=== PATIENT | female | born 2000 | race Caucasian/White ===

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

== ENCOUNTER → 2020-08-06 | Outpatient (REF) | payer OTHER ==
[2020-08-06 14:29] LABS: FREE T4 0.9 NG/DL (0.78-1.33); THYROID STIMULATING HORMONE 1.72 uIU/ML (0.463-3.98)
== END ==
LOC: M PLALAB 09:26
PROVIDERS: ATTEND Advanced Practice Midwife
DX: F53.0 Postpartum depression (principal)

== ENCOUNTER → 2021-01-24 | Outpatient (CLI) | payer BC, OTHER ==
[2021-01-24 18:53] LABS: HEMATOCRIT 42.2 % (36.0-47.0); HEMOGLOBIN 13.8 g/dl (12.0-15.5); MEAN CORPUSCULAR HEMOGLOBIN 28.9 pg (27.0-33.0); MEAN CORPUSCULAR HGB CONC 32.7 g/dl (32.0-36.5); MEAN CORPUSCULAR VOLUME 88.3 fl (80.0-96.0); PLATELET COUNT, AUTOMATED 322 10^3/uL (150-450); RED BLOOD COUNT 4.78 10^6/uL (4.00-5.40); WHITE BLOOD COUNT 11.7 10^3/uL (4.0-10.0)
[2021-01-24 20:11] LABS: HEPATITIS C VIRUS ABY INDEX < 0.0 INDEX (<0.8); HIV 1&2 SCREEN CENTAUR NEGATIVE (NEGATIVE)
[2021-01-25 09:40] LABS: GC DNA AMPLIFICATION NEGATIVE (NEGATIVE)
== END ==
LOC: M PLALAB 14:52
PROVIDERS: ATTEND Advanced Practice Midwife
DX: Z34.91 Encounter for supervision of normal pregnancy, unspecified, first trimester (principal)

== ENCOUNTER → 2021-04-12 | Outpatient (CLI) | payer BC, OTHER | LOC: M WHC 13:15 | PROVIDERS: ATTEND Obstetrics & Gynecology | DX: Z36.9 Encounter for antenatal screening, unspecified (principal); Z3A.20 20 weeks gestation of pregnancy ==

== ENCOUNTER → 2021-04-28 | Outpatient (CLI) | payer BC, OTHER | LOC: M WHC 11:34 | PROVIDERS: ATTEND Obstetrics & Gynecology | DX: Z36.2 Encounter for other antenatal screening follow-up (principal) ==

== ENCOUNTER → 2021-06-15 | Outpatient (CLI) | payer BC, OTHER ==
[2021-06-15 15:28] LABS: HEMATOCRIT 35.7 % (36.0-47.0); HEMOGLOBIN 11.8 g/dl (12.0-15.5); MEAN CORPUSCULAR HEMOGLOBIN 29.4 pg (27.0-33.0); MEAN CORPUSCULAR HGB CONC 33.1 g/dl (32.0-36.5); MEAN CORPUSCULAR VOLUME 88.8 fl (80.0-96.0); PLATELET COUNT, AUTOMATED 234 10^3/uL (150-450); RED BLOOD COUNT 4.02 10^6/uL (4.00-5.40); WHITE BLOOD COUNT 13.5 10^3/uL (4.0-10.0)
== END ==
LOC: M PLALAB 11:38
PROVIDERS: ATTEND Advanced Practice Midwife
DX: Z34.02 Encounter for supervision of normal first pregnancy, second trimester (principal)

== ENCOUNTER → 2021-07-01 | Outpatient (CLI) | payer BC, OTHER | LOC: M LAB 08:21 | PROVIDERS: ATTEND Specialist | DX: O99.810 Abnormal glucose complicating pregnancy (principal); Z3A.00 Weeks of gestation of pregnancy not specified ==

== ENCOUNTER → 2021-08-03 | Outpatient (CLI) | payer BC, OTHER ==
[2021-08-03 15:55] LABS: ALBUMIN 2.5 GM/DL (3.2-5.2); BILIRUBIN,DIRECT 0.1 MG/DL (0.0-0.2); BILIRUBIN,TOTAL 0.4 MG/DL (0.2-1.0); TOTAL PROTEIN 6.2 GM/DL (6.4-8.2)
== END ==
LOC: M PLALAB 13:54
PROVIDERS: ATTEND Obstetrics & Gynecology
DX: Z34.83 Encounter for supervision of other normal pregnancy, third trimester (principal)

== ENCOUNTER → 2021-08-03 | Outpatient (REF) | payer BC, OTHER | LOC: M SFHCWAGY 17:09 | PROVIDERS: ATTEND Obstetrics & Gynecology | DX: Z34.83 Encounter for supervision of other normal pregnancy, third trimester (principal); Z3A.00 Weeks of gestation of pregnancy not specified ==

== ENCOUNTER 2021-08-20 15:33 | Inpatient (IN) | payer BC, OTHER ==
[2021-08-20] VITALS (15 sets, daily range): BP systolic 124–186; BP diastolic 71–96
[~2021-08-20] VITALS: Ht 162.6 cm; Wt 103.2 kg
[2021-08-20] MEDS ORDERED: OXYTOCIN INJ 10 UNITS/ML VIAL (J2590) As Ordered ONE (15:49)
[2021-08-20] MEDS ORDERED: OXYTOCIN 30 UNITS IN 0.9% NaCl 500ML IV BAG (J2590) As Ordered ONE (15:49)
[2021-08-20] MEDS ORDERED: DOCUSATE SODIUM 100MG CAPSULE PO PRN (16:15)
[2021-08-20] MEDS ORDERED: RHOGAM 300 MCG (1500 IU) INJ (J2790) IM SCH (16:15)
[2021-08-20] MEDS ORDERED: METHYLERGONOVINE MALEATE 0.2 MG TAB PO PRN (16:15)
[2021-08-20] MEDS ORDERED: ACETAMINOPHEN TAB 650MG DOSE (2X325MG) PO PRN (16:15)
[2021-08-20] MEDS ORDERED: IBUPROFEN 600MG TAB PO PRN (16:15)
[2021-08-20] MEDS ORDERED: ANUSOL HC CREAM 30GM TOP PRN (16:15)
[2021-08-20] MEDS ORDERED: DIBUCAINE 1% OINTMENT 30GM TOP PRN (16:15)
[2021-08-20] MEDS ORDERED: MEASLES,MUMPS,RUBELLA VACCINE INJ (MMR-II) (90707) SC SCH (16:15)
[2021-08-20] MEDS ORDERED: OXYTOCIN INJ 10 UNITS/ML VIAL (J2590) IV ONE (16:15)
[2021-08-20] MEDS ORDERED: MOM 30ML SUSPENSION UDC PO PRN (16:15)
[2021-08-20] MEDS ORDERED: OXYTOCIN DRIP 30 UNITS in IV 1 EA IV SCH ×4 (16:15)
[2021-08-20 16:17] LABS: CORD GAS ABE A -0.4; CORD GAS HCO3 A 25.6 MEQ/L; CORD GAS O2 SAT A 44.2 %; CORD GAS PCO2 A 46.2 mmHg; CORD GAS PH A 7.361 UNITS; CORD GAS PO2 A 20.5 mmHg; CORD GAS SBC A 22.7 MEQ/L
[2021-08-20 16:18] LABS: CORD GAS ABE V -0.5; CORD GAS HCO3 V 22.9 MEQ/L; CORD GAS PCO2 V 34.8 mmHg; CORD GAS PH V 7.437 UNITS; CORD GAS PO2 V 32.1 mmHg; CORD GAS SBC V 23.5 MEQ/L
[2021-08-20] MEDS ORDERED: ZOLO50TA PO (16:28)
[2021-08-20 16:30] LABS: HEMOGLOBIN 11.8 g/dl (12.0-15.5); MEAN CORPUSCULAR HEMOGLOBIN 28.7 pg (27.0-33.0); MEAN CORPUSCULAR HGB CONC 32.8 g/dl (32.0-36.5); MEAN CORPUSCULAR VOLUME 87.6 fl (80.0-96.0); PLATELET COUNT, AUTOMATED 232 10^3/uL (150-450); RED BLOOD COUNT 4.11 10^6/uL (4.00-5.40); WHITE BLOOD COUNT 15.3 10^3/uL (4.0-10.0)
[2021-08-20] MEDS: LR 1,000 ML IV SCH (16:45)
[2021-08-20] MEDS ORDERED: HOME MED LIST COMPLETE! XX SCH (17:30)
[2021-08-20] MEDS ORDERED: LABETALOL 200 MG TAB PO ONE (18:15)
[2021-08-20 18:20] LABS: ALT/SGPT 23 U/L (12-78); BILIRUBIN,TOTAL 0.4 MG/DL (0.2-1.0); CREATININE FOR GFR 0.58 MG/DL (0.55-1.30); LDH LACTATE DEHYDROGENASE 173 U/L (84-246); URIC ACID 4.4 MG/DL (2.6-6.0)
[2021-08-20] MEDS ORDERED: LABETALOL 100MG/20ML VIAL IV STA (18:40)
[2021-08-20] MEDS: SERTRALINE HCL 50 MG TAB PO SCH (21:14)
[2021-08-21] MEDS: LR 1,000 ML IV SCH ×2 (00:15→08:15)
[2021-08-21] MEDS: ACETAMINOPHEN 500 MG TAB PO PRN (00:36)
[2021-08-21 01:58] VITALS: BP 137/71
[2021-08-21 05:53] VITALS: BP 141/82
[2021-08-21 08:23] LABS: HEMATOCRIT 34.9 % (36.0-47.0); HEMOGLOBIN 11.1 g/dl (12.0-15.5); MEAN CORPUSCULAR HEMOGLOBIN 28.1 pg (27.0-33.0); MEAN CORPUSCULAR HGB CONC 31.8 g/dl (32.0-36.5); MEAN CORPUSCULAR VOLUME 88.4 fl (80.0-96.0); PLATELET COUNT, AUTOMATED 226 10^3/uL (150-450); RED BLOOD COUNT 3.95 10^6/uL (4.00-5.40); WHITE BLOOD COUNT 16.1 10^3/uL (4.0-10.0)
[2021-08-21] MEDS: PRENATAL VITAMINS CHEWABLE TABLET PO SCH (09:11)
[2021-08-21] MEDS: LABETALOL 200 MG TAB PO SCH ×2 (09:12→20:41)
[2021-08-21 10:00] VITALS: BP 135/72
[2021-08-21 14:00] VITALS: BP 137/64
[2021-08-21 17:48] VITALS: BP 143/77
[2021-08-21] MEDS: SERTRALINE HCL 50 MG TAB PO SCH (20:41)
[2021-08-21 22:00] VITALS: BP 145/89
[2021-08-22 02:40] VITALS: BP 151/83
[2021-08-22] MEDS: ACETAMINOPHEN 500 MG TAB PO PRN (03:00)
[2021-08-22 06:00] VITALS: BP 151/76
[2021-08-22 08:49] VITALS: BP 146/87
[2021-08-22] MEDS: LABETALOL 200 MG TAB PO SCH (08:49)
[2021-08-22] MEDS: PRENATAL VITAMINS CHEWABLE TABLET PO SCH (08:49)
[2021-08-22] MEDS ORDERED: IBUP-1022 PO (09:48)
[2021-08-22] MEDS ORDERED: ACET-683 PO (09:48)
[2021-08-22 10:00] VITALS: BP 144/70
[2021-08-22] MEDS ORDERED: LABE20TAB PO (11:20)
== END 2021-08-22 12:40 | disposition home or self-care (01) | DRG 560 ==
LOC: M LDO 15:33 → M LDI 15:39 → M OBS 20:54
PROVIDERS: ADMIT Obstetrics & Gynecology; ATTEND Obstetrics & Gynecology
PROC: 10E0XZZ Delivery of Products of Conception, External Approach (ICD-10-PCS; principal; 2021-08-20)
DX: O62.3 Precipitate labor (principal); Z37.0 Single live birth; Z3A.39 39 weeks gestation of pregnancy